=== PATIENT | female | born 1940 | race Caucasian/White ===

== ENCOUNTER 2016-12-17 13:28 | Emergency (ER) | payer OTHER ==
[2016-12-17 13:28] VITALS: BMI 24.5
--- NOTE | 2016-12-17 14:23 | C.PDOC ---
History Of Present Illness 76 y/o female presents to the emergency department for evaluation of left-sided trapezius discomfort which radiates down left arm for 2 days. Patient denies recent trauma/falls and has not sought therapy for symptoms. Time Seen by Provider: 12/17/16 14:16 Chief Complaint (Nursing): Upper Extremity Problem/Injury History Per: Patient History/Exam Limitations: no limitations Onset/Duration Of Symptoms: Days (2) Current Symptoms Are (Timing): Still Present Quality: "Pain" Additional History Per: Patient Past Medical History Reviewed: Historical Data, Nursing Documentation, Vital Signs Vital Signs: Last Vital Signs Temp 98.3 F 12/17/16 15:51 Pulse 73 12/17/16 15:51 Resp 18 12/17/16 15:51 BP 159/68 H 12/17/16 15:51 Pulse Ox 100 12/17/16 16:08 - Medical History PMH: HTN Surgical History: No Surg Hx Family History: States: Unknown Family Hx - Social History Hx Tobacco Use: No Hx Alcohol Use: No Hx Substance Use: No - Immunization History Hx Tetanus Toxoid Vaccination: No Hx Influenza Vaccination: Yes Hx Pneumococcal Vaccination: No Review Of Systems Except As Marked, All Systems Reviewed And Found Negative. Musculoskeletal: Positive for: Arm Pain (left), Other (+left-sided trapezius discomfort ) Skin: Negative for: Other (direct trauma/injury or falls) Physical Exam - Physical Exam Appears: Non-toxic, No Acute Distress Skin: Normal Color, Warm, Dry, No Rash Head: Atraumatic, Normacephalic Eye(s): bilateral: Normal Inspection, PERRL, EOMI Oral Mucosa: Moist Neck: Normal ROM, Supple Chest: Symmetrical, No Deformity, No Tenderness Cardiovascular: Rhythm Regular, No Murmur Respiratory: Normal Breath Sounds, No Rales, No Rhonchi, No Wheezing Gastrointestinal/Abdominal: Soft, No Tenderness, No Guarding, No Rebound Back: Other (+left-sided trapezius tenderness ) Extremity: Normal ROM, Capillary Refill (less than 2 seconds ) Pulses: Left Radial: Normal, Right Radial: Normal Neurological/Psych: Oriented x3, Normal Speech, Normal Cognition, Normal Sensation Gait: Steady ED Course And Treatment - Laboratory Results Result Diagrams: 12/17/16 14:53 12/17/16 14:53 Lab Interpretation: Normal (trop/bnp neg., UA 24 WBC's) ECG: Interpreted By Me ECG Rhythm: Sinus Rhythm ECG Interpretation: Normal Rate From EC O2 Sat by Pulse Oximetry: 100 (on RA) Pulse Ox Interpretation: Normal - Radiology CXR: Interpreted by Me CXR Interpretation: Yes: No Acute Disease Progress Note: ice pack to L trapezius, and motrin PO Reevaluation Time: 16:04 Reassessment Condition: Improved Medical Decision Making Medical Decision Making: L trapezius strain/sprain, digitally and positionally reproducable. neg cardiac w/u. defer tx of asymptomatic mild pyuria for risk of abx in this age group Disposition Doctor Will See Patient In The: Office Counseled Patient/Family Regarding: Studies Performed, Diagnosis - Disposition Referrals: [facility] at [facility] [Outside] Disposition: HOME/ ROUTINE Disposition Time: 16:05 Condition: GOOD Additional Instructions: sigue hielo 1/2 hora por hora, nada caliente Ibuprofeno 400-600 mg cada 6 horas oriana necessario. Pepcid 20 mg en la noche para prevenir irritacion' del estomago debido al ibuprofeno. Sigue con flores medico de cabezera o' con nuestro clinica (gratis) oriana necessario Todo flores evaluacion' cardiologico salio NORMAL Instructions: Muscle Strain (ED) Print Language: ICELANDIC - Clinical Impression Clinical Impression: Muscle strain - Scribe Statement The provider has reviewed the documentation as recorded by the Scribe (Rashmi Cazares) Provider Attestation: All medical record entries made by the Scribe were at my direction and personally dictated by me. I have reviewed the chart and agree that the record accurately reflects my personal performance of the history, physical exam, medical decision making, and the department course for this patient. I have also personally directed, reviewed, and agree with the discharge instructions and disposition.
[2016-12-17 14:57] LABS: BASO % 0.6 % (0.0-2.0); EOS # 0.3 K/uL (0.0-0.7); EOS % 3.6 % (0.0-4.0); HEMATOCRIT 38.6 % (34.0-47.0); LYMPH % 47.9 % (20.0-40.0); MEAN CELL VOLUME 86.6 fL (81.0-99.0); MEAN CORPUSCULAR HEMOGLOBIN 27.9 pg (27.0-31.0); MEAN CORPUSCULAR HGB CONC 32.2 g/dL (33.0-37.0); MEAN PLATELET VOLUME 7.5 fL (7.2-11.7); MONO # 0.8 K/uL (0.0-0.8); MONO % 9.8 % (0.0-10.0); RED CELL DISTRIBUTION WIDTH 13.6 % (11.5-14.5); WHITE BLOOD COUNT 8.3 K/uL (4.8-10.8)
--- NOTE | 2016-12-17 14:59 | RAD ---
HISTORY: SOB COMPARISON: No prior. TECHNIQUE: Chest PA and lateral FINDINGS: LUNGS: No active pulmonary disease. PLEURA: No significant pleural effusion identified. No pneumothorax apparent. CARDIOVASCULAR: Normal. OSSEOUS STRUCTURES: No significant abnormalities. VISUALIZED UPPER ABDOMEN: Normal. OTHER FINDINGS: None. IMPRESSION: No active disease.
[2016-12-17 15:02] LABS: RBC URINE 10 /hpf (0-3); URINE BACTERIA OCC (<OCC); URINE BILIRUBIN NEGATIVE (NEGATIVE); URINE BLOOD 1+ (NEGATIVE); URINE COLOR Yellow (YELLOW); URINE GLUCOSE (UA) NORMAL (Normal); URINE KETONE NEGATIVE (NEGATIVE); URINE LEUKOCYTE ESTERASE 3+ Leu/uL (Negative); URINE PROTEIN NEGATIVE (NEGATIVE); URINE UROBILINOGEN NORMAL mg/dL (0.2-1.0); WBC URINE 24 /hpf (0-5)
[2016-12-17 15:06] LABS: CHLORIDE 99 mmol/L (98-107); SODIUM 137 mmol/L (132-148)
[2016-12-17 15:07] LABS: POTASSIUM 4.6 mmol/L (3.6-5.2)
[2016-12-17 15:09] LABS: ALB/GLOB RATIO 1.1 (1.0-2.1); ALKALINE PHOSPHATASE 62 U/L (38-126); ALT/SGPT 16 U/L (9-52); AST/SGOT 30 U/L (14-36); BILIRUBIN,TOTAL 0.7 mg/dL (0.2-1.3); BLOOD UREA NITROGEN 19 mg/dL (7-17); CARBON DIOXIDE 26 mmol/L (22-30); GFR AFRICAN-AMERICAN > 60; GLUCOSE,RANDOM 131 mg/dL (65-105); TOTAL PROTEIN 7.7 g/dL (6.3-8.3)
[2016-12-17 15:10] LABS: CALCIUM 8.7 mg/dl (8.6-10.4)
[2016-12-17 15:52] VITALS: BP 159/68; PULSE 73; RESP 18; TEMP 98.3
[2016-12-17 16:05] VITALS: O2SAT 100
--- NOTE | 2016-12-18 11:55 | CARD ---
APPROVED REPORT EKG Measurement Heart [id number] SD 190P42 [id number] <Conclusion> Normal sinus rhythm Voltage criteria for left ventricular hypertrophy Nonspecific T wave abnormality Prolonged QT Abnormal ECG
== END 2016-12-17 16:15 | disposition home or self-care (01) ==
LOC: C.ER 13:28
DX: S46.912A Strain of unspecified muscle, fascia and tendon at shoulder and upper arm level, left arm, initial encounter (principal); X58.XXXA Exposure to other specified factors, initial encounter

== ENCOUNTER 2017-11-19 06:22 | Emergency (ER) | payer OTHER ==
[2017-11-19 06:22] VITALS: BMI 24.5
[2017-11-19 06:37] VITALS: RESP 20; TEMP 99.2
--- NOTE | 2017-11-19 07:09 | CT ---
EXAM: CT Head Without Intravenous Contrast CLINICAL HISTORY: 77 years old, female; Pain; Headache; Patient HX: 05-17-16 images sent TECHNIQUE: Axial computed tomography images of the head/brain without intravenous contrast. All CT scans at this facility use one or more dose reduction techniques, viz.: automated exposure control; ma/kV adjustment per patient size (including targeted exams where dose is matched to indication; i.e. head); or iterative reconstruction technique. 290 images are submitted. Coronal and sagittal reformatted images were created and reviewed. COMPARISON: CT - HEAD W/O CONTRAST 2016-05-17 19:43 FINDINGS: Brain: Right basal ganglia calcifications. No hemorrhage. Ventricles: Unremarkable. No ventriculomegaly. Bones/joints: Unremarkable. No acute fracture. Soft tissues: Unremarkable. Sinuses: Unremarkable. No acute sinusitis. Mastoid air cells: Unremarkable. No mastoid effusion. Orbits: The globes are intact. Correlation with patient's clinical history of ophthalmic surgery is recommended. Dental: Edentulous maxilla and mandible. IMPRESSION: No evidence of an acute intracranial hemorrhage, midline shift or mass effect is identified.
[2017-11-19 07:41] VITALS: O2SAT 100
[2017-11-19 07:45] LABS: BASO # 0.1 K/uL (0.0-0.2); BASO % 0.6 % (0.0-2.0); EOS # 0.2 K/uL (0.0-0.7); EOS % 2.5 % (0.0-4.0); HEMOGLOBIN 14.1 g/dL (11.0-16.0); LYMPH # 2.9 K/uL (1.0-4.3); MEAN CELL VOLUME 87.9 fL (81.0-99.0); MEAN CORPUSCULAR HEMOGLOBIN 29.3 pg (27.0-31.0); MEAN CORPUSCULAR HGB CONC 33.3 g/dL (33.0-37.0); MEAN PLATELET VOLUME 7.7 fL (7.2-11.7); MONO # 0.7 K/uL (0.0-0.8); MONO % 7.6 % (0.0-10.0); NEUT # 5.6 K/uL (1.8-7.0); NEUT % 59.3 % (50.0-75.0); RBC 4.81 Mil/uL (3.80-5.20); RED CELL DISTRIBUTION WIDTH 13.7 % (11.5-14.5); WHITE BLOOD COUNT 9.5 K/uL (4.8-10.8)
[2017-11-19 07:52] LABS: PROTHROMBIN TIME 10.8 SECONDS (9.7-12.2)
--- NOTE | 2017-11-19 08:08 | RAD ---
Chest x-ray single frontal view History: Evaluation. Comparison: 12/17/2016 Findings: Biapical pleural thickening with upper lobe granulomatous changes. Mild venous congestion. Patchy increased markings at the left lung base. Tortuous ectatic aorta. Calcification at the aortic knob. Degenerative changes in the spine and shoulders. Impression: Biapical pleural thickening with upper lobe granulomatous changes. Mild venous congestion. Patchy increased markings at the left lung base. Tortuous ectatic aorta. Calcification at the aortic knob.
[2017-11-19 08:09] LABS: ALB/GLOB RATIO 1.1 (1.0-2.1); ALBUMIN 4.2 g/dL (3.5-5.0); ALT/SGPT 12 U/L (9-52); AST/SGOT 31 U/L (14-36); BLOOD UREA NITROGEN 12 mg/dL (7-17); CALCIUM 9.4 mg/dl (8.6-10.4); GFR AFRICAN-AMERICAN > 60; GFR NON-AFRICAN AMERICAN 54
[2017-11-19 08:19] LABS: CK-MB 1.02 ng/mL (0.0-3.38)
--- NOTE | 2017-11-19 08:46 | C.PDOC ---
History Of Present Illness 77-year-old female, whose PMHx includes Migraines and Hypertension, is brought to the emergency department by daughter, with complaints of a frontal headache that is associated with nausea and light sensitivity, since yesterday. Patient states she took multiple Ibuprofen's with no relief. She has a Hx of headaches, but this one is stronger in intensity. Patient is also complaining of lower back pain that she has had chronically. She denies vomiting, fever, visual changes, facial droop, numbness/weakness, or any other associated symptoms. No other complaints at this time. Time Seen by Provider: 11/19/17 07:00 Chief Complaint (Nursing): Headache History Per: Patient History/Exam Limitations: no limitations Current Symptoms Are (Timing): Still Present Severity: Moderate Past Medical History Reviewed: Historical Data, Nursing Documentation, Vital Signs Vital Signs: Last Vital Signs Temp 99.2 F 11/19/17 06:33 Pulse 82 11/19/17 07:40 Resp 20 11/19/17 07:40 BP 156/58 H 11/19/17 07:40 Pulse Ox 100 11/19/17 08:50 - Medical History PMH: HTN, Migraine Family History: States: No Known Family Hx - Social History Hx Tobacco Use: No Hx Alcohol Use: No Hx Substance Use: No - Immunization History Hx Tetanus Toxoid Vaccination: No Hx Influenza Vaccination: Yes Hx Pneumococcal Vaccination: No Review Of Systems Constitutional: Negative for: Fever, Chills Eyes: Positive for: Other (light sensitivity.) Gastrointestinal: Negative for: Vomiting Musculoskeletal: Negative for: Neck Pain Neurological: Positive for: Headache. Negative for: Weakness, Numbness, Dizziness Physical Exam - Physical Exam Appears: Non-toxic, Other (mild-moderate pain) Skin: Normal Color, Warm, Dry, No Rash Head: Normacephalic Eye(s): bilateral: Normal Inspection, PERRL, EOMI Nose: Normal Oral Mucosa: Moist Lips: Normal Appearing Neck: Normal ROM, Supple Cardiovascular: Rhythm Regular, No Murmur Respiratory: Normal Breath Sounds, No Accessory Muscle Use Gastrointestinal/Abdominal: Soft, No Tenderness Extremity: Normal ROM, No Deformity, No Swelling Neurological/Psych: Oriented x3, Normal Speech, Normal Motor, Normal Sensation, Other (No focal deficits) ED Course And Treatment - Laboratory Results Result Diagrams: 11/19/17 07:40 11/19/17 07:40 O2 Sat by Pulse Oximetry: 100 - Other Rad CXR X-Ray: Viewed By Me, Read By Radiologist Interpretation: Accession No. : [id number]. Patient Name / ID : FELICIANO MELENDEZ / [id number]. Exam Date : 11/19/2017 07:49:17 ( Approved ). Study Comment : Sex / Age : F / 77Y. Creator : Uzair Nugent MD. Dictator : Uzair Nugent MD. Guard Supervisor : Staging Technician : Uzair Nugent MD. Approver2 : Report Date : 11/19/2017 08:06:41. My Comment : . Chest x-ray single frontal view. History: Evaluation. Comparison: 12/17/2016. Findings: Biapical pleural thickening with upper lobe granulomatous changes. Mild venous congestion. Patchy increased markings at the left lung base. Tortuous ectatic aorta. Calcification at the aortic knob. Degenerative changes in the spine and shoulders. Impression: Biapical pleural thickening with upper lobe granulomatous changes. Mild venous congestion. Patchy increased markings at the left lung base. Tortuous ectatic aorta. Calcification at the aortic knob. - CT Scan/US CT head Other Rad Studies (CT/US): Read By Radiologist, Radiology Report Reviewed CT/US Interpretation: Accession No. : [id number]. Patient Name / ID : FELICIANO MELENDEZ / [id number]. Exam Date : 11/19/2017 06:56:48 ( Approved ). Study Comment : Sex / Age : F / 77Y. Creator : JEIMY MORENO. Dictator : Guard Supervisor : Staging Technician : JEIMY MORENO. Approver2 : Report Date : 11/19/2017 07:09:00. My Comment : . [facility] Division of Radiology. [address] [place] [address]. Tel. no. . . . Patient Name: AYAAN QUINN . Pt. Address: [address] [place] [address]. Rec #: [id number]. [place] [address] : Frances Solorzano DO Pt Order Location: [facility] : 1940 Female Age: 77 Order #: [id number]. Reason for exam: HEADACHE. . . . . . CT Scan. . . HEAD W/O CONTRAST Exam Date: . . This imaging exam was performed at [facility]. EXAM: CT Head Without Intravenous Contrast. . CLINICAL HISTORY: 77 years old, female; Pain ; Headache; Patient HX: 05-17-16 images sent. . TECHNIQUE: Axial computed tomography images of the head/brain without intravenous. contrast. All CT scans at this facility use one or more dose reduction. techniques, viz.: automated exposure control; ma/kV adjustment per patient size. (including targeted exams where dose is matched to indication; i.e. head); or. iterative reconstruction technique. 290 images are submitted. Coronal and sagittal reformatted images were created and reviewed. . COMPARISON: CT - HEAD W/O CONTRAST 2016-05-17 19:43. . FINDINGS: Brain: Right basal ganglia calcifications. No hemorrhage. Ventricles: Unremarkable. No ventriculomegaly. Bones/joints: Unremarkable. No acute fracture. Soft tissues: Unremarkable. Sinuses: Unremarkable. No acute sinusitis. Mastoid air cells: Unremarkable. No mastoid effusion. Orbits: The globes are intact. Correlation with patient's clinical history. of ophthalmic surgery is recommended. Dental: Edentulous maxilla and mandible. . IMPRESSION: No evidence of an acute intracranial hemorrhage, midline shift or mass effect. is identified. . Dictated By: JEIMY MORENO. Dictated Date/Time: 11/19/17708. Signed By: JEIMY MROENO MD. Date Signed: 11/19/17708. Transcribed By: IVET. Transcribe Date/Time: 11/19/17708. TAMIKO/GABO Progress Note: CT Head, EKG, bloodwork and chest xray ordered and reviewed. Patient treated with 30mg IV Toradol and 650mg PO Tylenol. Disposition Counseled Patient/Family Regarding: Studies Performed, Diagnosis, Need For Followup, Rx Given - Disposition Referrals: [facility] at [facility] [Outside] Freddy Peoples MD [Staff Provider] - Disposition: HOME/ ROUTINE Disposition Time: 10:10 Condition: STABLE Additional Instructions: FOLLOW UP WITH EYE DOCTOR WITHIN 1 WEEK USE MEDICATION NEEDED FOR HEADACHE RETURN TO EMERGENCY ROOM IF SYMPTOMS WORSEN SEGUIR CON EL DOCTOR DE MARY DENTRO DE 1 SEMANA USE MEDICAMENTO SEGN SEA NECESARIO PARA DOLOR DE DANISH REGRESE AL ROSY DE EMERGENCIA SI LOS SNTOMAS EMPEORAN Prescriptions: Acetaminophen/Butalbital/Caf [Fioricet] 1 tab PO TID PRN #20 tab PRN Reason: Headache Instructions: Headache, Adult (DC) Forms: [facility] (Gibraltarian) Print Language: COOK ISLANDER - POA Present On Arrival: None - Clinical Impression Clinical Impression: Headache, Chronic low back pain, Cataract - Scribe Statement The provider has reviewed the documentation as recorded by the Scribe (Saumya Grover) All medical record entries made by the Scribe were at my direction and personally dictated by me. I have reviewed the chart and agree that the record accurately reflects my personal performance of the history, physical exam, medical decision making, and the department course for this patient. I have also personally directed, reviewed, and agree with the discharge instructions and disposition.
[2017-11-19 10:41] VITALS: BP 130/54; PULSE 80
--- NOTE | 2017-11-20 19:22 | CARD ---
APPROVED REPORT EKG Measurement Heart [id number] MO 188P28 [id number] <Conclusion> Normal sinus rhythm Voltage criteria for left ventricular hypertrophy Nonspecific T wave abnormality Prolonged QT Abnormal ECG
== END 2017-11-19 10:42 | disposition home or self-care (01) ==
LOC: C.ER 06:22
DX: R51 Headache (principal); G89.29 Other chronic pain; M54.5 Low back pain; H26.9 Unspecified cataract
CPT/HCPCS: 70450; 71045; 80053; 82550; 82553; 82948; 84484; 85025; 85610; 85730; 93005; 96374; 99285; J1885

== ENCOUNTER 2018-03-29 10:36 | Emergency (ER) | payer OTHER ==
[2018-03-29 10:36] VITALS: BMI 24.5
[2018-03-29 10:43] VITALS: PULSE 69
[2018-03-29] MEDS ORDERED: Sodium Chloride 0.9% 1,000 ML IV ONE (11:09)
--- NOTE | 2018-03-29 11:09 | C.PDOC ---
History Of Present Illness 77-year-old female, with PMHx that includes Migraines and Hypertension, brought to the emergency department by daughter for evaluation of dizziness for past 3 days associated with diffuse lower abdominal discomfort, (+) foul smelling urine. Otherwise, pt and daughter denies high fever, chills, LOC, syncope, CP, SOB, dyspnea, diaphoresis, palpitation, V/D, back pain, hematuria. Ambulate to ED for evaluation, not in any apparent distress. Time Seen by Provider: 03/29/18 11:07 Chief Complaint (Nursing): Dizziness/Lightheaded History Per: Patient, Family Onset/Duration Of Symptoms: Gradual Past Medical History Reviewed: Historical Data, Nursing Documentation, Vital Signs Vital Signs: Last Vital Signs Temp 97.9 F 03/29/18 13:28 Pulse 69 03/29/18 13:28 Resp 14 03/29/18 13:28 BP 136/54 L 03/29/18 13:28 Pulse Ox 98 03/29/18 13:28 - Medical History PMH: HTN, Migraine Family History: States: No Known Family Hx - Social History Hx Tobacco Use: No Hx Alcohol Use: No Hx Substance Use: No - Immunization History Hx Tetanus Toxoid Vaccination: No Hx Influenza Vaccination: No Hx Pneumococcal Vaccination: No Review Of Systems Except As Marked, All Systems Reviewed And Found Negative. Constitutional: Negative for: Fever, Chills Eyes: Negative for: Vision Change ENT: Negative for: Throat Pain Cardiovascular: Negative for: Chest Pain, Palpitations, Edema Respiratory: Negative for: Cough, Shortness of Breath, Wheezing Gastrointestinal: Positive for: Abdominal Pain. Negative for: Nausea, Vomiting Genitourinary: Positive for: Dysuria. Negative for: Vaginal Discharge, Vaginal Bleeding Musculoskeletal: Negative for: Neck Pain Skin: Negative for: Rash Neurological: Positive for: Dizziness. Negative for: Weakness, Numbness, Altered Mental Status, Headache Physical Exam - Physical Exam Appears: Well, Non-toxic, No Acute Distress Skin: Normal Color, Warm, Dry, No Rash Head: Normacephalic Eye(s): bilateral: PERRL Nose: No Flaring, No Discharge Oral Mucosa: Moist Tongue: Normal Appearing Throat: No Erythema Neck: Trachea Midline, Supple Cardiovascular: Rhythm Regular, No Murmur, No JVD Respiratory: No Decreased Breath Sounds, No Accessory Muscle Use, No Stridor, No Wheezing Gastrointestinal/Abdominal: Soft, Tenderness (mild suprapubic), No Distention, No Guarding, No Rebound Back: No CVA Tenderness Extremity: Normal ROM, No Deformity, No Swelling Neurological/Psych: Oriented x3, Normal Speech, Normal Motor, Normal Sensation, Normal Reflexes ED Course And Treatment - Laboratory Results Result Diagrams: 03/29/18 11:30 03/29/18 11:30 Lab Interpretation: Abnormal ECG: Interpreted By Me, Viewed By Me Interpretation Of ECG: SR@65/min, LAD, LVH, no acute ST-T changes O2 Sat by Pulse Oximetry: 97 Pulse Ox Interpretation: Normal - Radiology CXR: Read By Radiologist CXR Interpretation: Yes: No Acute Disease - Other Rad Obstructive serial X-Ray: Read By Radiologist Interpretation: no acute findings - CT Scan/US CT head w/o contrast Other Rad Studies (CT/US): Read By Radiologist CT/US Interpretation: IMPRESSION: No acute intracranial pathology. Age- related changes. No significant interval change. Progress Note: On re-eval, pt remained stable. Afebrile, hemodynamicaly stable. Non-toxic. Pt is ambulatory in ED with stable gait. Pt eat breakfast , tolerate Po well. Blood work review and appears without acute abnormalities, no acute leukocytosis or left shift, chemistry- normal, no dehydration. UA (+) nitrate. Ucx- pending. Pt received Rocephin IV now. Results review and discussed with pt and daughter, agrees with plan. Disposition Counseled Patient/Family Regarding: Studies Performed, Diagnosis, Need For Followup, Rx Given - Disposition Referrals: [facility] at [facility] [Outside] Disposition: HOME/ ROUTINE Disposition Time: 12:32 Condition: STABLE Additional Instructions: Encourage fluids Take medication as prescribed Follow up with PMD in 1-2 days for re-evaluation. return to ED if any worsening or new changes. Prescriptions: Cefpodoxime [Vantin] 400 mg PO BID #28 tab Instructions: Urinary Tract Infections in Adults Forms: [facility] (Khmer) Print Language: UPPER SORBIAN - Clinical Impression Clinical Impression: Urinary tract infection
--- NOTE | 2018-03-29 11:26 | RAD ---
Date of service: 03/29/2018 PROCEDURE: CHEST RADIOGRAPH, 1 VIEW HISTORY: AMS COMPARISON: Chest radiograph dated 11/19/2017 FINDINGS: LUNGS: Clear. PLEURA: No pneumothorax or pleural fluid seen. CARDIOVASCULAR: Atherosclerotic aortic calcifications. Cardiomediastinal silhouette stably enlarged. OSSEOUS STRUCTURES: Unchanged. VISUALIZED UPPER ABDOMEN: Normal. OTHER FINDINGS: None. IMPRESSION: No active disease.
[2018-03-29 11:36] LABS: BASO % 0.5 % (0.0-2.0); EOS # 0.2 K/uL (0.0-0.7); EOS % 2.3 % (0.0-4.0); HEMOGLOBIN 12.7 g/dL (11.0-16.0); LYMPH # 3.4 K/uL (1.0-4.3); LYMPH % 41.4 % (20.0-40.0); MEAN CORPUSCULAR HEMOGLOBIN 28.6 pg (27.0-31.0); MEAN CORPUSCULAR HGB CONC 33.2 g/dL (33.0-37.0); MEAN PLATELET VOLUME 7.6 fL (7.2-11.7); MONO # 0.8 K/uL (0.0-0.8); MONO % 9.1 % (0.0-10.0); NEUT # 3.9 K/uL (1.8-7.0); NEUT % 46.7 % (50.0-75.0); NRBC % 0.1 % (0.0-2.0); RBC 4.44 Mil/uL (3.80-5.20); RED CELL DISTRIBUTION WIDTH 13.6 % (11.5-14.5); WHITE BLOOD COUNT 8.3 K/uL (4.8-10.8)
[2018-03-29 11:46] LABS: ALB/GLOB RATIO 1.3 (1.0-2.1); ALBUMIN 4.2 g/dL (3.5-5.0); ALT/SGPT 22 U/L (9-52); AST/SGOT 16 U/L (14-36); BLOOD UREA NITROGEN 16 mg/dL (7-17); CALCIUM 9.6 mg/dl (8.6-10.4); GFR NON-AFRICAN AMERICAN > 60
[2018-03-29] MEDS ORDERED: Sodium Chloride 0.9% 1,000 ML ONE (11:55)
[2018-03-29 11:56] LABS: PROTHROMBIN TIME 11.3 SECONDS (9.7-12.2)
[2018-03-29 12:03] LABS: SQUAMOUS EPITHIAL 2 /hpf (0-5); URINE BACTERIA MANY (<OCC); URINE BILIRUBIN NEGATIVE (NEGATIVE); URINE BLOOD 2+ (NEGATIVE); URINE CLARITY Hazy (Clear); URINE COLOR Yellow (YELLOW); URINE GLUCOSE (UA) NORMAL (Normal); URINE LEUKOCYTE ESTERASE 3+ Leu/uL (Negative); URINE PROTEIN NEGATIVE (NEGATIVE); URINE UROBILINOGEN NORMAL mg/dL (0.2-1.0)
--- NOTE | 2018-03-29 12:11 | RAD ---
Date of service: 03/29/2018 HISTORY: PAIN COMPARISON: No prior. FINDINGS: BOWEL: Normal. No obstruction. No free air. BONES: S-shaped scoliosis of the thoracolumbar spine. OTHER FINDINGS: None. IMPRESSION: No active disease.
--- NOTE | 2018-03-29 12:11 | CT ---
Date of service: 03/29/2018 PROCEDURE: CT HEAD WITHOUT CONTRAST. HISTORY: AMS COMPARISON: CT head dated 11/19/2017 TECHNIQUE: Axial computed tomography images were obtained through the head/brain without intravenous contrast. Radiation dose: Total exam DLP = 885.4 mGy-cm. This CT exam was performed using one or more of the following dose reduction techniques: Automated exposure control, adjustment of the mA and/or kV according to patient size, and/or use of iterative reconstruction technique. FINDINGS: HEMORRHAGE: No intracranial hemorrhage. BRAIN: No mass effect or edema. Atrophy. Chronic microvascular ischemic changes. VENTRICLES: Unremarkable. No hydrocephalus. CALVARIUM: Unremarkable. PARANASAL SINUSES: Unremarkable as visualized. No significant inflammatory changes. MASTOID AIR CELLS: Unremarkable as visualized. No inflammatory changes. OTHER FINDINGS: None. IMPRESSION: No acute intracranial pathology. Age-related changes. No significant interval change.
[2018-03-29] MEDS ORDERED: cefTRIAXone 1 gm 1 GM/100 ML BAG IVPB ONE (13:00)
[2018-03-29 13:31] VITALS: BP 136/54; RESP 14; TEMP 97.9
[2018-03-29 14:08] VITALS: O2SAT 97
--- NOTE | 2018-03-31 12:38 | CARD ---
APPROVED REPORT Date of service: 03/29/2018 EKG Measurement Heart [id number] MO 204P35 [id number] <Conclusion> Normal sinus rhythm Left ventricular hypertrophy with repolarization abnormality Abnormal ECG
== END 2018-03-29 14:20 | disposition home or self-care (01) ==
LOC: C.ER 10:36
DX: N39.0 Urinary tract infection, site not specified (principal); I10 Essential (primary) hypertension
CPT/HCPCS: 70450; 71045; 74019; 80053; 81001; 84484; 85025; 85610; 85730; 87040; 87086; 87181; 93005; 96361; 96365; 99285; J0696; J7030